=== PATIENT | female | born 1960 | race Caucasian/White ===

== ENCOUNTER 2018-01-13 19:06 | Emergency (ER) | payer MEDICARE, MEDICAID ==
[2018-01-13] MEDS ORDERED: Acetaminophen 500 MG TAB ONE (20:09)
--- NOTE | 2018-01-13 22:02 | RAD ---
TWO VIEWS CHEST: HISTORY: Fever. Cough. COMPARISON: None. FINDINGS: Normal cardiac silhouette. The pulmonary vessels and hilum are normal. the costophrenic angles are clear. No consolidation or mass. No pneumothorax or osseous abnormalities. IMPRESSION: No acute cardiopulmonary process. POS: [facility]
== END 2018-01-13 20:46 | disposition home or self-care (01) ==
LOC: SCSER 19:06
DX: J02.9 Acute pharyngitis, unspecified (principal); E11.9 Type 2 diabetes mellitus without complications; F32.9 Major depressive disorder, single episode, unspecified; Z79.899 Other long term (current) drug therapy
CPT/HCPCS: 71046; 87081; 87430; 99406

== ENCOUNTER 2018-02-09 17:35 | Emergency (ER) | payer MEDICARE, MEDICAID ==
[2018-02-09] MEDS ORDERED: Bacitracin Zinc 1 Packet ONE (18:21)
[2018-02-09] MEDS ORDERED: Adacel (T-DAP) 0.5 ML VIAL ONE (18:48)
== END 2018-02-09 18:20 | disposition home or self-care (01) ==
LOC: SCSER 17:35
DX: S61.212A Laceration without foreign body of right middle finger without damage to nail, initial encounter (principal); I25.2 Old myocardial infarction; E11.9 Type 2 diabetes mellitus without complications; F32.9 Major depressive disorder, single episode, unspecified; W26.8XXA Contact with other sharp object(s), not elsewhere classified, initial encounter
CPT/HCPCS: 90471; 90715

== ENCOUNTER 2018-04-02 20:05 | Emergency (ER) | payer MEDICARE, MEDICAID ==
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
== END 2018-04-02 21:57 | disposition home or self-care (01) ==
LOC: ERS 20:05
DX: L03.116 Cellulitis of left lower limb (principal); I25.2 Old myocardial infarction; E11.9 Type 2 diabetes mellitus without complications; F32.9 Major depressive disorder, single episode, unspecified; Z79.84 Long term (current) use of oral hypoglycemic drugs

== ENCOUNTER 2018-05-28 05:48 | Observation (INO) | payer MEDICARE, MEDICAID ==
[2018-05-28 06:22] LABS: Hemoglobin 13.6 g/dL (12.0-16.0); Mean Corpuscular Hemoglobin 27.9 pg (27.0-31.0); Mean Corpuscular Volume 87.2 fL (78.0-98.0); Mean Platelet Volume 7.2 fL (7.4-10.4); Platelet Count 238 thou/uL (130-400); RBC Distribution Width 12.6 % (11.5-14.5); Red Blood Cell (RBC) Count 4.89 mill/uL (4.20-5.40)
[2018-05-28 06:27] LABS: INR-International Normal Ratio 0.9; PTT 29.7 SEC (22.9-36.1); Prothrombin Time 12.3 SEC (12.0-14.7)
[2018-05-28 06:29] LABS: ALT (SGPT) 12 U/L (8-55); AST (SGOT) 15 U/L (5-34); Albumin 3.9 g/dL (3.5-5.0); Alkaline Phosphatase 99 U/L (40-150); Anion Gap 12 mmol/L (10-20); BUN (Urea Nitrogen) 9 mg/dL (9.8-20.1); Bilirubin, Total 0.5 mg/dL (0.2-1.2); CK (CPK) 124 U/L (29-168); Calc. Creatinine Clearance 0 mL/min (70-130); Calcium 9.3 mg/dL (7.8-10.44); Carbon Dioxide 24 mmol/L (22-29); Chloride 104 mmol/L (98-107); Estimated GFR-MDRD 74; Globulin 2.7 g/dL (2.4-3.5); Glucose 122 mg/dL (70-105); Potassium 3.9 mmol/L (3.5-5.1); Protein, Total 6.6 g/dL (6.0-8.3); Sodium 136 mmol/L (136-145)
[2018-05-28 06:32] LABS: CKMB 1.9 ng/mL (0-6.6); Troponin I Less than 0.010 ng/mL (< 0.028)
[2018-05-28 06:38] LABS: Eosinophils 1 % (0-10); Lymphocytes 32 % (21-51); MDiff Complete? YES; Monocytes 5 % (0-10); Neutrophil 60 % (42-75); PLT Morphology Comment Appears Adequate; RBC Morphology Normal; Reactive Lymphocytes 2 % (0-10); White Blood Cell (WBC) Count 10.3 thou/uL (4.8-10.8)
[2018-05-28] MEDS ORDERED: Ondansetron PF 4 MG/2 ML Vial ONE (07:23)
[2018-05-28] MEDS ORDERED: Aspirin 300 MG Suppository ONE (07:23)
--- NOTE | 2018-05-28 08:03 | CT ---
CTA OF THE HEAD WITH IV CONTRAST AND 3D REFORMATTED IMAGING CTA OF THE NECK WITH IV CONTRAST AND 3D REFORMATTED IMAGING: Date: 05/28/18 INDICATION: History of left-sided facial droop, left-sided neglect and arm drift. FINDINGS: CTA HEAD: No hemodynamically significant stenosis, occlusion, or aneurysmal formation is demonstrated. No area of abnormal enhancement is demonstrated. There is prominent opacification of the right frontal sinus, right ethmoid air cells, and right maxillary sinus. CTA NECK: No hemodynamically significant stenosis, occlusion, or aneurysmal formation is demonstrated. Soft tis sues of the head and neck appear within normal limits. No enlarged lymph nodes are evident. Lung apic es are clear. No definite acute osseous abnormality is evident. IMPRESSION: 1. No hemodynamically significant stenosis, occlusion, or aneurysmal formation demonstrated. 2. Prominent right paranasal sinus disease. POS: [facility]
--- NOTE | 2018-05-28 08:06 | CT ---
CT OF THE BRAIN WITHOUT CONTRAST: Date: 05/28/18 INDICATION: Left-sided weakness, Level I stroke protocol. COMPARISON: None. FINDINGS: There are bur holes involving the right frontal and right parietal skull. No acute infarct, hemorrhag e, or hydrocephalus is present. Septum pellucidum and third ventricle are midline. There is prominent mucosal thickening within the right ethmoid air cells, as well as the right frontal sinus. Small air fluid level is seen within the right maxillary sinus with near complete opacification of the right m axillary sinus. Mastoid air cells are clear. IMPRESSION: 1. No acute intracranial abnormality demonstrated. 2. Prominent right-sided paranasal sinus disease. Recommend correlation for sinusitis. Findings called to Dr. Zaldivar at 0604 hours on 05/28/18. CODE CR. POS: [facility]
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
[2018-05-28] MEDS ORDERED: Dextrose 50% Abboject 50 ML SYRINGE SLOW IVP PRN (09:45)
[2018-05-28] MEDS ORDERED: HumaLOG 300 UNITS/3 ML VIAL SC PRN (09:45)
[2018-05-28] MEDS ORDERED: Dextrose 5% in Water 1,000 ML IV PRN (09:45)
--- NOTE | 2018-05-28 12:24 | HP ---
DATE OF ADMISSION: 05/28/2018 CHIEF COMPLAINT: Left-sided weakness, facial droop. HISTORY OF PRESENT ILLNESS: Ms. Ivan is a 58-year-old white female who was admitted with left-si ded weakness and facial droopiness. She was felt to be having TIA versus stroke. She was admitted f or stroke workup. Thus far, she has had negative CTA of the head and neck. We will schedule MRI and have Neurology see her as well. PHYSICAL EXAMINATION: VITAL SIGNS: Her blood pressure is currently 140/70, pulse rate is 88 and regular, respirations 14. GENERAL: She seems confused and is having some word-finding difficulty. She is, however, awake and alert. NECK: Supple. CARDIAC: Heart rhythm regular. No gallop or murmur noted. LUNGS: Clear, though diminished without rales or wheezes. ABDOMEN: Flat and soft without guarding, rebound or rigidity. NEUROLOGICAL: She does have a slight left-sided weakness and facial droopiness. LABORATORY DATA: CBC, white count is 10,300, hemoglobin 13.6, hematocrit 42.6 with an MCV of 87.2. Chemistries, her sodium is 136, potassium 3.9, chloride is 104, bicarbonate is 24, BUN is 9, creatini ne is 0.79 and glucose is 122. She has already had a CTA of the head and neck with no finding of significant occlusive disease. We are going ahead and schedule her for an echocardiogram. If this also proves negative, we may conside r event recorder to assess her for some type of occult arrhythmia. In the meantime, we will start as pirin and statins and monitor blood pressure. I have examined the patient. I have also discussed the case with Dr. July Perez and agree with her as sessment and plan.
[2018-05-28] MEDS: Acetaminophen 325 MG TAB PO PRN ×2 (15:27→23:53)
[2018-05-28] MEDS ORDERED: Lorazepam 0.5 MG TAB PO SCH (16:00)
[2018-05-28] MEDS ORDERED: ISOVUE-370 76%-LOCM 1 ML ONE (16:05)
[2018-05-28] MEDS: Gabapentin 400 MG CAP PO SCH ×2 (16:33→21:54)
[2018-05-28] MEDS ORDERED: Ketorolac Tromethamine 30 MG/ML VIAL IVP SCH (17:00)
[2018-05-28] MEDS ORDERED: Non-Formulary Item 1 EACH (Metformin Hcl [Metformin Hcl] 1,000 MG) PO SCH (21:00)
[2018-05-28] MEDS: guaiFENesin ER 600 MG TAB PO SCH (21:54)
[2018-05-28] MEDS: Carvedilol 3.125 MG TAB PO SCH (21:54)
[2018-05-28] MEDS: metFORMIN 500 MG TAB PO SCH (21:54)
[2018-05-29 05:07] LABS: #Eosinphils 0.2 thou/uL (0.0-0.7); #Lymphocytes 2.7 thou/uL (1.20-3.40); #Monocytes 0.5 thou/uL (0.11-0.59); #Neutrophils 4.6 thou/uL (1.40-6.50); %Basophils 0.4 % (0.0-1.0); %Eosinophils 2.6 % (0.0-10.0); %Lymphocytes 33.7 % (21.0-51.0); %Monocytes 6.5 % (0.0-10.0); %Neutrophils 56.9 % (42.0-75.0); Hemoglobin 13.3 g/dL (12.0-16.0); Mean Corpuscular HGB CONC 32.3 g/dL (32.0-36.0); Mean Corpuscular Hemoglobin 28.2 pg (27.0-31.0); Mean Corpuscular Volume 87.4 fL (78.0-98.0); Mean Platelet Volume 7.3 fL (7.4-10.4); Platelet Count 231 thou/uL (130-400); RBC Distribution Width 12.5 % (11.5-14.5); Red Blood Cell (RBC) Count 4.73 mill/uL (4.20-5.40)
[2018-05-29 05:27] LABS: Anion Gap 11 mmol/L (10-20); BUN (Urea Nitrogen) 14 mg/dL (9.8-20.1); Calc. Creatinine Clearance 163 mL/min (70-130); Calcium 9.2 mg/dL (7.8-10.44); Carbon Dioxide 25 mmol/L (22-29); Cardiac Risk 2.9 (Less than 4.5); Chloride 106 mmol/L (98-107); Cholesterol 116 mg/dl (< 200 Desired); Estimated GFR-MDRD Greater than 90; Glucose 101 mg/dL (70-105); HDL Cholesterol 40 mg/dL (>60 Neg Risk); LDL Cholesterol, Calculated 45 mg/dL; Potassium 4.4 mmol/L (3.5-5.1); Sodium 138 mmol/L (136-145); Triglycerides 154 mg/dL (Less than 150)
[2018-05-29] MEDS: Ketorolac Tromethamine 30 MG/ML VIAL IVP PRN ×3 (06:14→21:53)
[2018-05-29] MEDS: Levothyroxine Sodium 100 MCG TAB PO SCH (06:14)
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
[2018-05-29] MEDS ORDERED: Lorazepam 2 MG/ML VIAL SLOW IVP SCH (07:45)
[2018-05-29] MEDS: Clopidogrel Bisulfate 75 MG TAB PO SCH (08:41)
[2018-05-29] MEDS: Atorvastatin Calcium 40 MG TAB PO SCH (08:41)
[2018-05-29] MEDS: Carvedilol 3.125 MG TAB PO SCH ×2 (08:41→23:12)
[2018-05-29] MEDS: Gabapentin 400 MG CAP PO SCH ×4 (08:41→23:11)
[2018-05-29] MEDS: guaiFENesin ER 600 MG TAB PO SCH ×2 (08:42→23:12)
[2018-05-29] MEDS: Magnesium Oxide 250 MG TAB PO SCH (08:42)
[2018-05-29] MEDS: metFORMIN 500 MG TAB PO SCH ×2 (08:42→22:59)
[2018-05-29] MEDS: Acetaminophen 325 MG TAB PO PRN (08:46)
--- NOTE | 2018-05-29 10:32 | PRG ---
DATE OF SERVICE: 05/29/2018 SUBJECTIVE: Ms. Ivan is resting quietly in bed. She was unable to do an MRI yesterday because o f anxiety. We will pretreat her with Ativan and reattempt an MRI today. We are also awaiting consul tation from Neurology Service. Otherwise, Ms. Ivan is clinically stable and is ready on aspirin and statin therapy.
[2018-05-29] MEDS: Empagliflozin [Jardiance] 10 MG TAB PO SCH (11:33)
[2018-05-29] MEDS ORDERED: Lorazepam 2 MG/ML VIAL SLOW IVP PRN (12:22)
--- NOTE | 2018-05-29 15:38 | MRI ---
BRAIN MRI NONCONTRAST: INDICATION: Stroke, left-sided weakness. FINDINGS: There is extensive patient motion throughout the imaging exam which limits evaluation. There is a fo benny area of increased diffusion weighted signal at the anterior and lateral right frontal convexity w hich is limited by patient motion and difficult to corroborate on the ADC map, although a small area of acute cortical infarction cannot be excluded. Alternatively, this could relate to a focal area of artifact. There is no midline shift or ventriculomegaly. No hemorrhagic susceptibility is visualiz ed within the brain parenchyma. IMPRESSION: Focal area of increased diffusion weighted signal at the anterolateral right frontal lobe for which a small cortical infarction of acuity is not excluded. The exam is markedly degraded by patient motio n. POS: [facility]
[2018-05-29 18:46] VITALS: BMI 43.0
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
[2018-05-30] MEDS: Ketorolac Tromethamine 30 MG/ML VIAL IVP PRN ×2 (03:38→11:18)
--- NOTE | 2018-05-30 06:11 | PDOC.FM ---
- Subjective Subjective: Pt has severe headache again this morning. Ketorolac has diminished the pain yesterday. - Objective Vital Signs & Weight: Vital Signs (12 hours) Temp Pulse Resp BP Pulse Ox 05/30/18 04:00 98.2 F 61 24 H 142/78 H 96 05/30/18 00:00 98.4 F 64 22 H 140/70 97 05/29/18 20:00 98.9 F 75 16 107/62 96 Weight Admit Weight 108.862 kg Weight 106.736 kg I&O: 05/28/18 05/29/18 05/30/18 06:59 06:59 06:59 Intake Total 250 903 Balance 250 903 Result Diagrams: 05/30/18 07:23 05/30/18 07:23 Phys Exam - Physical Examination Appears in pain HEENT: PERRLA, moist MMs, oral pharynx no lesions Neck: no nodes, supple Respiratory: no wheezing, clear to auscultation bilateral Cardiovascular: RRR, no significant murmur Gastrointestinal: soft, non-tender, positive bowel sounds Musculoskeletal: no edema, pulses present LUE and LLE 3/5, numbness on L side face, L arm, L leg slightly improved. Psychiatric: normal affect Dx/Plan (1) Sinusitis Code(s): J32.9 - CHRONIC SINUSITIS, UNSPECIFIED Status: Acute (2) DM2 (diabetes mellitus, type 2) Status: Chronic (3) HLD (hyperlipidemia) Code(s): E78.5 - HYPERLIPIDEMIA, UNSPECIFIED Status: Chronic (4) Hypothyroid Code(s): E03.9 - HYPOTHYROIDISM, UNSPECIFIED Status: Chronic (5) Neuropathy Code(s): G62.9 - POLYNEUROPATHY, UNSPECIFIED Status: Chronic - Plan Plan: 58 yo F with PMH DM2 and prior intracranial hemorrhage presents for "worst headache of life" most likely stroke # Left sided Weakness and numbness, probable psychogenic disorder, improving -Rt sided "worst headache of life," Pt has word-finding difficulty, Left sided facial and body weakness and numbness -Pt has been under significant stress lately with caring for her granddaughters , under significant financial stress -Received ASA 300 in ED with zofran - On dual antiplatelet therapy, on statin therapy -EKG wnl, CT head wnl, CTA head/neck showed no stenosis, occlusion or aneurysm -Consulted stroke team -Neuro consulted, Dr. Flores. Appreciate recommendations -Reports her symptoms are inconsistent with stroke, most likely this is a psychogenic paralysis due to stressors -Consider DHE and reglan for headache -LP today -MRI inconclusive because of motion artifact -Pt passed bedside swallow for pureed foods, Diet: CC puree -Pt did not like diet, switched to regular puree -Neuro checks q4 hrs -ECHO showed EF 60-65%, Grade 1/3 diastolic dysfunction, mild tricuspid and mitral valve regurge, mildly dilated LA, mildly enlarged right atrium -PT/OT on board #Rt sided Sinusitis -mucinex -monitor for fever #DM2 -home medications -Mod SSI -Hypoglycemia protocol #HLD -atorvastatin 40 -S/p cath x2 stents in December -continue home Coreg (3.125 BID) -continue home plavix #hypothyroidism -continue synthroid #Neuropathy -Continue gabapentin DVT PPX: SCDs Code status: Full code
[2018-05-30] MEDS: Acetaminophen 325 MG TAB PO PRN (06:25)
[2018-05-30] MEDS: Levothyroxine Sodium 100 MCG TAB PO SCH (06:25)
[2018-05-30 07:33] LABS: #Basophils 0.1 thou/uL (0.0-0.2); #Eosinphils 0.2 thou/uL (0.0-0.7); #Lymphocytes 2.6 thou/uL (1.20-3.40); #Monocytes 0.6 thou/uL (0.11-0.59); #Neutrophils 5.8 thou/uL (1.40-6.50); %Basophils 0.7 % (0.0-1.0); %Eosinophils 2.6 % (0.0-10.0); %Lymphocytes 28.4 % (21.0-51.0); %Monocytes 6.4 % (0.0-10.0); %Neutrophils 61.9 % (42.0-75.0); Hemoglobin 12.9 g/dL (12.0-16.0); Mean Corpuscular HGB CONC 33.4 g/dL (32.0-36.0); Mean Corpuscular Volume 86.8 fL (78.0-98.0); Platelet Count 251 thou/uL (130-400); RBC Distribution Width 12.6 % (11.5-14.5); Red Blood Cell (RBC) Count 4.45 mill/uL (4.20-5.40); White Blood Cell (WBC) Count 9.3 thou/uL (4.8-10.8)
[2018-05-30 07:58] LABS: Anion Gap 11 mmol/L (10-20); BUN (Urea Nitrogen) 14 mg/dL (9.8-20.1); Calc. Creatinine Clearance 134 mL/min (70-130); Calcium 9.3 mg/dL (7.8-10.44); Carbon Dioxide 28 mmol/L (22-29); Chloride 102 mmol/L (98-107); Estimated GFR-MDRD 79; Glucose 113 mg/dL (70-105); Potassium 4.5 mmol/L (3.5-5.1); Sodium 136 mmol/L (136-145)
[2018-05-30] MEDS ORDERED: Metoclopramide HCl 10 MG TAB PO SCH (08:15)
[2018-05-30] MEDS ORDERED: diphenhydrAMINE 25 MG CAP PO SCH (08:15)
[2018-05-30] MEDS: Empagliflozin [Jardiance] 10 MG TAB PO SCH (09:12)
[2018-05-30] MEDS: metFORMIN 500 MG TAB PO SCH (09:13)
[2018-05-30] MEDS: Magnesium Oxide 250 MG TAB PO SCH (09:14)
[2018-05-30] MEDS: Atorvastatin Calcium 40 MG TAB PO SCH (09:14)
[2018-05-30] MEDS: Clopidogrel Bisulfate 75 MG TAB PO SCH (09:14)
[2018-05-30] MEDS: guaiFENesin ER 600 MG TAB PO SCH (09:15)
[2018-05-30] MEDS: Carvedilol 3.125 MG TAB PO SCH (09:15)
[2018-05-30] MEDS: Gabapentin 400 MG CAP PO SCH ×2 (09:15→13:56)
[2018-05-30] MEDS ORDERED: PARoxetine 20 MG TAB PO SCH (09:30)
[2018-05-30] MEDS ORDERED: Dihydroergotamine Mesylate 1 MG/ML AMP SLOW IVP SCH (11:30)
--- NOTE | 2018-05-30 11:52 | PRG ---
DATE OF SERVICE: 05/30/2018 Ms. Ivan is awake and alert this morning. She was upset about her headache regimen including Oscar adryl, but is otherwise in no distress. We appreciate the input from Neurology. It would seem that she has not had stroke, but the MRI was inconclusive because of motion artifact. I think it would be reasonable to continue at least the aspirin and statin in her case until the clinical picture is dudley arer. Neurology has also suggested that if her headache is ongoing with not much improvement to give her a trial of DHE and Reglan.
[2018-05-30] MEDS ORDERED: HYDROcodone/Acetaminophen 10/325 mg Tablet PO PRN (14:35)
[2018-05-30] MEDS ORDERED: Ondansetron ODT 4 MG TAB PO PRN (15:18)
[2018-05-30 15:49] VITALS: BP 186/82; TEMP 97.9
--- NOTE | 2018-05-30 16:06 | PDOC.EVN ---
Event Note - Event Note Event Note: Spoke with Patient and pt's daughter and grandson. Patient does not want to go to a facility, prefers home health. Pt's needs require PT/OT, rolling walker, fpc, home health. Pt's daughter states that she and her cousin will be available and will be assisting the patient at home. All family understands and is in agreement with the plan. Pt states she will follow up with Dr. Rogers outpatient.
--- NOTE | 2018-05-31 05:04 | DIS-2 ---
DATE OF ADMISSION: 05/28/2018 DATE OF DISCHARGE: 05/30/2018 RESIDENT: July Perez MD ADMITTING ATTENDING: Dr. Packer. DISCHARGE ATTENDING: Dr. Packer. CONSULTATION: Dr. Flores, Neurology on 05/28/2018. PROCEDURES: 1. Brain CT on 05/28/2018: Impression: No acute intracranial abnormality. Prominent right-sided paranasal sinus disease. CT angiography on 05/28/2018, no hemodynamically significant stenosis, occlusion, or aneurysm formation demonstrated. 2. Head, neck CTA with brain perfusion on 05/28/2018: Impression: No hemodynamically significant stenosis, occlusion, or aneurysm formation. 3. Echocardiogram on 05/28/2018. Ejection fraction 60-65%. Grade 1/3 diastolic dysfunction. Mild tricuspid regurgitation. Mild mitral regurgitation. Mildly dilated left atrium. Mildly enlarged right atrium size. 4. Brain MRI on 05/29/2018: Impression: Focal area of increased diffusion weighted signal at the anterolateral right frontal lobe, which is small cortical infarction of ACUITY is not excluded. The exam is markedly degraded by patient motion. PRIMARY DIAGNOSIS: Psychogenic paralysis. SECONDARY DIAGNOSES: 1. Right-sided sinusitis. 2. Diabetes mellitus type 2. 3. Hyperlipidemia. 4. Hypothyroidism. 5. Neuropathy. DISCHARGE MEDICATIONS: 1. Aspirin 81 mg p.o. daily. 2. Atorvastatin 40 mg p.o. daily. 3. Carvedilol 3.125 mg p.o. b.i.d. 4. Cholecalciferol 2000 units p.o. daily. 5. Clopidogrel 75 mg p.o. daily. 6. Empagliflozin 10 mg p.o. daily. 7. Gabapentin 800 mg p.o. q.i.d. 8. Levothyroxine 200 mcg p.o. daily. 9. Magnesium oxide 500 mg p.o. daily. 10. Metformin 1000 mg p.o. b.i.d. 11. Paroxetine 20 mg p.o. daily. DISCONTINUED MEDICATIONS: None. HISTORY OF PRESENT ILLNESS AND HOSPITAL COURSE: This is a 58-year-old female with past medical history of diabetes mellitus and prior intracranial hemorrhage in 1999, presenting for right-sided frontal headache, worst of her life, and word finding difficulty. The pain started around midnight and woke her from sleep around 2:00 a.m. The pain was 10/10, constant, with no radiation "feels like a drill." The patient reports never having headaches. The pain is now improved in the ED to 7/10. Associated symptom of nausea. Per daughter, the patient has had symptoms of headache and word finding difficulties since about 9:00 p.m. to midnight last night. In the ED, the patient received aspirin 300 rectal and 4 mg of Zofran. The patient had been under significant amount of stress that she is caring for her granddaughters and was under significant financial distress. Patient was already on dual antiplatelet therapy as well as statin therapy. Her EKG was within normal limits. CT of head was normal. CT of head and neck showed no stenosis, occlusion, or aneurysm. Neuro, Dr. Flores was consulted. She received an MRI , which was inconclusive because of motion artifact. Dr. Flores diagnosed the patient with most likely psychogenic paralysis. She was given ketorolac, which somewhat helped her headaches. She was also tried on Reglan and Benadryl, which did not help her headaches. She was also given ergotamine, which caused the patient to vomit and was discontinued. An echo was done which showed ejection fraction of 60-65% and a mildly dilated left atrium and mildly enlarged right atrium. The patient was started on Mucinex for her right-sided sinusitis. The patient was continued on home medication for diabetes, hyperlipidemia, hypothyroidism, and neuropathy. The patient reported that she only sleeps about 3-4 hours at night because of her anxiety and depressive symptoms. She says she cannot fall asleep due to racing thoughts. The patient stated she was well controlled on Paxil about 6 months ago, but stopped taking Paxil because she missed two appointments with her doctor. We will start her on Paxil 20 mg p.o. daily. Patient will follow up with her PCP after discharge. DISPOSITION: Stable. DISCHARGE INSTRUCTIONS: 1. Location: Home. 2. Diet: Diabetic diet, normal heart healthy diet. 3. Activity: As tolerated. THERAPY INSTRUCTIONS: 1. Home health, occupational therapy, physical therapy. 2. Equipment supplies, a rolling walker. 3. Follow up with home health. 4. Follow up with Dr. Perez within 1 week with [facility]. 5. Follow up with Tommy Hsu, PCP with regular scheduled appointment on . [facility]
[2018-05-31] MEDS ORDERED: PARoxetine 20 MG TAB PO SCH (09:00)
== END 2018-05-30 18:24 | disposition home health service (06) ==
LOC: ERS 05:48 → 2SE 08:55
PROVIDERS: ADMIT Student in an Organized Health Care Education/Training Program; ATTEND Student in an Organized Health Care Education/Training Program
DX: F44.4 Conversion disorder with motor symptom or deficit (principal); F41.9 Anxiety disorder, unspecified; F31.9 Bipolar disorder, unspecified; F17.210 Nicotine dependence, cigarettes, uncomplicated; J32.9 Chronic sinusitis, unspecified; E78.5 Hyperlipidemia, unspecified; E11.42 Type 2 diabetes mellitus with diabetic polyneuropathy; I25.10 Atherosclerotic heart disease of native coronary artery without angina pectoris; I10 Essential (primary) hypertension; E89.0 Postprocedural hypothyroidism; Z86.73 Personal history of transient ischemic attack (TIA), and cerebral infarction without residual deficits; Z79.02 Long term (current) use of antithrombotics/antiplatelets; Z79.82 Long term (current) use of aspirin; Z79.84 Long term (current) use of oral hypoglycemic drugs; Z79.899 Other long term (current) drug therapy; Z88.1 Allergy status to other antibiotic agents; Z88.8 Allergy status to other drugs, medicaments and biological substances; Z95.5 Presence of coronary angioplasty implant and graft; Z98.890 Other specified postprocedural states; Z63.79 Other stressful life events affecting family and household
CPT/HCPCS: 0042T; 70450; 70496; 70498; 70551; 80048 ×2; 80053; 80061; 82550; 82553; 82962 ×3; 84484; 85025 ×3; 85610; 85730; 90732; 93005; 93306; 96374; 96375 ×3; 96376 ×2; 97110; 97139 ×2; 97530 ×3; 99285; G0009; G0378 ×3; G8978; G8979; G8987; G8988; 36415; 36416; 90471; G8996-GN-CK; G8997-GN-CI; J1110; J1885; J2060; J2405; J2997; Q0162

== ENCOUNTER 2018-08-22 19:22 | Emergency (ER) | payer MEDICARE, MEDICAID ==
[2018-08-22 20:13] LABS: #Basophils 0.1 thou/uL (0.0-0.2); #Eosinphils 0.1 thou/uL (0.0-0.7); #Lymphocytes 3.2 thou/uL (1.20-3.40); #Monocytes 0.6 thou/uL (0.11-0.59); #Neutrophils 4.2 thou/uL (1.40-6.50); %Basophils 1.4 % (0.0-1.0); %Eosinophils 1.5 % (0.0-10.0); %Lymphocytes 38.3 % (21.0-51.0); %Monocytes 7.7 % (0.0-10.0); Hemoglobin 14.9 g/dL (12.0-16.0); Mean Corpuscular HGB CONC 32.2 g/dL (32.0-36.0); Mean Corpuscular Hemoglobin 28.8 pg (27.0-31.0); Mean Corpuscular Volume 89.5 fL (78.0-98.0); Mean Platelet Volume 7.4 fL (7.4-10.4); Platelet Count 223 thou/uL (130-400); Red Blood Cell (RBC) Count 5.17 mill/uL (4.20-5.40); White Blood Cell (WBC) Count 8.3 thou/uL (4.8-10.8)
[2018-08-22 20:26] LABS: ALT (SGPT) 21 U/L (8-55); AST (SGOT) 20 U/L (5-34); Albumin 4.4 g/dL (3.5-5.0); Alkaline Phosphatase 109 U/L (40-150); Anion Gap 14 mmol/L (10-20); BUN (Urea Nitrogen) 14 mg/dL (9.8-20.1); Bilirubin, Total 0.2 mg/dL (0.2-1.2); Calc. Creatinine Clearance 0 mL/min (70-130); Calcium 9.3 mg/dL (7.8-10.44); Carbon Dioxide 31 mmol/L (22-29); Chloride 101 mmol/L (98-107); Estimated GFR-MDRD 58; Globulin 2.9 g/dL (2.4-3.5); Glucose 174 mg/dL (70-105); Potassium 3.5 mmol/L (3.5-5.1); Protein, Total 7.3 g/dL (6.0-8.3); Sodium 142 mmol/L (136-145)
--- NOTE | 2018-08-22 20:30 | RAD ---
RIGHT FOOT THREE VIEWS: 08/22/18 HISTORY: Right foot pain, cut her toe while cutting her toenails. FINDINGS/IMPRESSION: Mild degenerative changes. No fracture, dislocation, or other significant acute osseous abnormality. POS: JODEE
[2018-08-22] MEDS ORDERED: Piperacillin/Tazobactam 3.375 GM VIAL ONE (21:34)
[2018-08-22] MEDS ORDERED: Sodium Chloride 0.9% 100 ML ONE (21:35)
== END 2018-08-22 22:31 | disposition home or self-care (01) ==
LOC: SCSER 19:22
DX: L03.031 Cellulitis of right toe (principal); I25.2 Old myocardial infarction; E11.9 Type 2 diabetes mellitus without complications; F32.9 Major depressive disorder, single episode, unspecified; F17.210 Nicotine dependence, cigarettes, uncomplicated; Z86.73 Personal history of transient ischemic attack (TIA), and cerebral infarction without residual deficits
CPT/HCPCS: 36415; 80053; 85025; 96365; J2543; J7050

== ENCOUNTER 2018-12-07 16:53 | Observation (INO) | payer MEDICAID, MEDICARE ==
[~2018-12-07 16:53] MED LIST: ISOVUE-370 76%-LOCM 1 ML ONE
[2018-12-07 17:32] LABS: #Basophils 0.1 thou/uL (0.0-0.2); #Eosinphils 0.1 thou/uL (0.0-0.7); #Lymphocytes 1.7 thou/uL (1.20-3.40); #Monocytes 0.3 thou/uL (0.11-0.59); %Basophils 0.9 % (0.0-1.0); %Lymphocytes 23.3 % (21.0-51.0); %Monocytes 4.2 % (0.0-10.0); %Neutrophils 70.6 % (42.0-75.0); Hemoglobin 13.6 g/dL (12.0-16.0); Mean Corpuscular HGB CONC 33.2 g/dL (32.0-36.0); Mean Corpuscular Hemoglobin 30.2 pg (27.0-31.0); Mean Corpuscular Volume 91.1 fL (78.0-98.0); Mean Platelet Volume 7.3 fL (7.4-10.4); Platelet Count 187 thou/uL (130-400); RBC Distribution Width 12.2 % (11.5-14.5); Red Blood Cell (RBC) Count 4.51 mill/uL (4.20-5.40); White Blood Cell (WBC) Count 7.1 thou/uL (4.8-10.8)
[2018-12-07] MEDS ORDERED: Metoclopramide HCl 10 MG/2 ML VIAL ONE (17:52)
[2018-12-07] MEDS ORDERED: diphenhydrAMINE 50 MG/ML VIAL ONE (17:52)
[2018-12-07 18:00] LABS: ALT (SGPT) 15 U/L (8-55); AST (SGOT) 14 U/L (5-34); Albumin 3.9 g/dL (3.5-5.0); Alkaline Phosphatase 90 U/L (40-150); Anion Gap 13 mmol/L (10-20); BUN (Urea Nitrogen) 17 mg/dL (9.8-20.1); Bilirubin, Total 0.3 mg/dL (0.2-1.2); Calc. Creatinine Clearance 0 mL/min (70-130); Calcium 9.4 mg/dL (7.8-10.44); Carbon Dioxide 28 mmol/L (22-29); Chloride 99 mmol/L (98-107); Estimated GFR-MDRD 65; Globulin 2.3 g/dL (2.4-3.5); Glucose 180 mg/dL (70-105); Lipase 8 U/L (8-78); Potassium 3.7 mmol/L (3.5-5.1); Protein, Total 6.2 g/dL (6.0-8.3); Sodium 136 mmol/L (136-145)
[2018-12-07] MEDS ORDERED: predniSONE 20 MG TAB ONE (18:19)
--- NOTE | 2018-12-07 18:33 | RAD ---
PORTABLE CHEST ONE VIEW: Date: 12-07-18 Time: 5:45 p.m. Comparison: Chest pain FINDINGS: The heart size is normal. The aorta is tortuous. The lungs are well expanded without focal areas of c onsolidation, pneumothoraces or pleural effusions. IMPRESSION: No acute process. POS: DAO
[2018-12-07] MEDS ORDERED: Ondansetron PF 4 MG/2 ML Vial IVP PRN (19:45)
[2018-12-07] MEDS ORDERED: Senokot S 8.6-50 MG TAB PO PRN (19:45)
[2018-12-07] MEDS ORDERED: Sodium Chloride 0.9% 1,000 ML IV SCH (19:45)
[2018-12-07] MEDS ORDERED: Dextrose 50% Abboject 50 ML SYRINGE SLOW IVP PRN (19:54)
[2018-12-07] MEDS ORDERED: HumaLOG 300 UNITS/3 ML VIAL SC PRN (19:54)
[2018-12-07] MEDS ORDERED: Dextrose 5% in Water 1,000 ML IV PRN (19:54)
[2018-12-07 20:55] LABS: Troponin I Less than 0.010 ng/mL (< 0.028)
[2018-12-07] MEDS ORDERED: Melatonin 3 MG TAB PO PRN (21:35)
[2018-12-07] MEDS ORDERED: metFORMIN 500 MG TAB PO SCH (21:45)
[2018-12-07] MEDS ORDERED: Apixaban 5 MG TAB PO SCH (22:15)
[2018-12-07] MEDS ORDERED: Gabapentin 400 MG CAP PO SCH (22:15)
[2018-12-07] MEDS ORDERED: Carvedilol 3.125 MG TAB PO SCH (22:15)
[2018-12-07] MEDS: Famotidine 20 MG TAB PO SCH (22:21)
--- NOTE | 2018-12-07 22:47 | CT ---
CT ABDOMEN AND PELVIS WITH IV CONTRAST: History: Umbilical hernia with vomiting. FINDINGS: Lung bases are clear. No calcified gallstones are seen. The liver, spleen, pancreas, adrenal glands, and left kidney are normal. There is scarring in the right kidney. No free air, free fluid or lymphad enopathy is seen in the abdomen or pelvis. There are vascular calcifications without evidence of aneu rysmal dilatation of the abdominal aorta. There are post op changes and metallic hardware in the lower lumbar spine. The patient is post hyster ectomy. There is fecal material in the colon. A small hiatal hernia is present. Small bowel loops are not abnormally dilated. There is no evidence of appendicitis. There is a fat containing umbilical he rnia. IMPRESSION: No evidence of acute process. POS: DAO
[2018-12-07 23:07] VITALS: BMI 37.9
[2018-12-08 00:36] LABS: Troponin I Less than 0.010 ng/mL (< 0.028)
--- NOTE | 2018-12-08 01:16 | HP ---
CHIEF COMPLAINT: Chest pain. HISTORY OF PRESENT ILLNESS: This is a 58-year-old female who presented to the emergency room today for evaluation of chest pain over the last 2 days, reports becoming lightheaded along with some double vision intermittently and fluttering in her chest. The patient today states that she had some shortness of breath and nausea and vomited x1. Reports that she has had cough for a couple of days and feels like as heavy pressure is sitting substernally on her chest. The patient states that she took 325 mg of aspirin prior to arrival and then an another one on the way here. The patient states she has been under increased stress lately and she helped a family member move yesterday. Last bowel movement was yesterday. Reported passing gas normally. She has a history of TIA in May, has had a heart catheterization with 2 stents and had a LINQ placed in December of last year. She also has a history of a hiatal hernia. Other pertinent past medical history includes lupus and fibromyalgia. She has had 2 MIs, diabetes, had thyroid cancer. Does report a history of sleep apnea, but states that she got tired of the CPAP and stopped using it. She also has a history of cigarette smoking and smokes about half a pack a day and has for over 10 years. The patient's initial troponin x2 are undetectable. EKG shows normal sinus rhythm, beats per minute 75. Conduction is normal, ST segments are normal, nonspecific T-wave changes. The patient also reports that she has had this hernia in her abdomen for the last several years, reports that had been repaired once, but reports that it has come back, and it is bigger than it was originally. Reports that she has some pain around it. Denies any changes to stool, is passing gas. ER ordered abdomen and pelvis CT, which showed no evidence of any acute process. Does report that she has a fat containing hernia. The patient is subsequently admitted to the observation unit for further management. REVIEW OF SYSTEMS: Denies chills or fever. Does report some intermittent vision changes. Reports that she had a presyncopal episode. Reports chest pain. Reports palpitations. Reports cough and shortness of breath. Reports appetite changes, food intolerance, nausea, and vomiting x1. Denies constipation or diarrhea. Reports dizziness. Denies headache, mental status changes, sensory changes, or motor changes. All other systems are reviewed and are negative unless mentioned in the HPI. PAST MEDICAL HISTORY: CT x2, stent placement x2, has had a TIA, lupus, fibromyalgia, diabetes type 2, has a history of thyroid cancer, which was removed, and she is on replacement therapy, and also has a LINQ recorder. PAST SURGICAL HISTORY: Back surgery, left ankle laminectomy, hernia repair, hysterectomy, thyroidectomy. PSYCHIATRIC HISTORY: Includes depression. SOCIAL HISTORY: Smokes cigarettes half a pack a day. Denies any alcohol or drug use. ALLERGIES: 1. ABILIFY. 2. KEFLEX. 3. NAPROXEN. 4. ZYPREXA. 5. REPORTS THAT SHE IS VERY SENSITIVE TO ALL NSAIDS. HOME MEDICATIONS: 1. Coreg 3.125 b.i.d. p.o. 2. Gabapentin 800 mg p.o. q.i.d. 3. Vitamin D3 2000 units once a day. 4. Synthroid 200 mcg once a day. 5. Aspirin 81 mg p.o. once a day. 6. Atorvastatin 40 mg at bedtime. 7. Jardiance 10 mg once a day in the morning. 8. Magnesium 250 mg every other day. 9. Metformin 1000 mg p.o. b.i.d. 10. Prilosec 40 mg once a day. 11. Eliquis 5 mg p.o. b.i.d. 12. Calcium 600 mg once a day. 13. Carisoprodol 350 mg p.o. q.8 hours as needed. PHYSICAL EXAMINATION: VITAL SIGNS: Blood pressure is 122/80, pulse is 66, respirations are 19, pO2 saturations 100% on 2 L of oxygen. GENERAL: The patient appears nontoxic. She is alert and oriented to person, place, and time. HEENT: Head is atraumatic and normocephalic. Eyes; eyelids are normal to inspection. Pupils are equally round and reactive to light. ENT; mouth exam is normal. Mucous membranes are moist. NECK: Normal range of motion. Trachea is midline. RESPIRATORY: Wheezing diffuse and scattered bilaterally. No findings of any respiratory distress. CARDIOVASCULAR: Regular heart rate and rhythm. Heart sounds are normal. ABDOMEN: Tender diffusely. Has a large umbilical hernia which is tender, but reducible, is not erythematous. BACK: Normal inspection. Normal range of motion. EXTREMITIES: Upper extremities; inspection is normal, range of motion is normal. Radial pulses are equal bilaterally. Lower extremities; normal range of motion. Normal inspection. Sensation is intact. Pedal pulses are equal. No edema is noted. NEUROLOGIC: The patient is oriented to person, place, and time. Speech is normal. SKIN: Warm and dry. Normal in color. PSYCH: Normal affect. IMAGING DATA: Chest x-ray shows no acute process. PERTINENT LABORATORY DATA: Sodium 136, potassium is 3.7, chloride is 99, carbon dioxide is 28, gap is 13, BUN is 17, creatinine is 0.89, estimated GFR is 65, glucose is 180, calcium is 9.4, bilirubin 0.3, AST is 14, ALT is 15, alkaline phosphatase is 90. Troponin x2 is undetectable. Albumin is 3.9, globulin is 2.3, lipase is 8. White blood cell count is 7.1, hemoglobin is 13.6, hematocrit is 41.1, and platelet count is 187. PLAN AND ASSESSMENT: 1. Chest pain. We will have serial troponins. We will order a stress test. The patient had an echocardiogram in May of 2018 which showed ejection fraction is visually estimated at 60% to 65%, grade 1/3 diastolic dysfunction, mild tricuspid regurgitation, mild mitral regurgitation, mildly dilated left atrium, mildly enlarged right atrium. 2. History of stent placement and anticoagulation. We will continue Eliquis, aspirin, and Coreg. 3. Dyslipidemia. We will check lipids in the morning. We will continue the Lipitor. 4. Fibromyalgia. We will continue home medications. 5. Hypothyroidism. We will check thyroid levels in the morning. Continue her home medication, adjust as needed. 6. Abdominal pain around hernia. This appears stable. Per the CT scan, there is a hernia containing fat. It does not appear incarcerated. It is not erythematous. It is reducible. We will have the patient follow up as an outpatient if it continues to be stable. 7. Gastrointestinal prophylaxis has been started. The patient is already anticoagulated. 8. Hospital course will be dependent on clinical findings. Job ID: [id number]
[2018-12-08] MEDS: Acetaminophen 325 MG TAB PO PRN ×2 (04:49→08:57)
[2018-12-08 05:18] LABS: #Lymphocytes 1.1 thou/uL (1.20-3.40); #Monocytes 0.2 thou/uL (0.11-0.59); #Neutrophils 4.4 thou/uL (1.40-6.50); %Basophils 0.6 % (0.0-1.0); %Eosinophils 0.3 % (0.0-10.0); %Lymphocytes 18.5 % (21.0-51.0); %Monocytes 2.9 % (0.0-10.0); %Neutrophils 77.8 % (42.0-75.0); Hemoglobin 13.5 g/dL (12.0-16.0); Mean Corpuscular HGB CONC 33.1 g/dL (32.0-36.0); Mean Corpuscular Hemoglobin 30.8 pg (27.0-31.0); Mean Corpuscular Volume 92.8 fL (78.0-98.0); Mean Platelet Volume 7.7 fL (7.4-10.4); Platelet Count 197 thou/uL (130-400); RBC Distribution Width 12.3 % (11.5-14.5); White Blood Cell (WBC) Count 5.7 thou/uL (4.8-10.8)
[2018-12-08 05:34] LABS: Anion Gap 12 mmol/L (10-20); BUN (Urea Nitrogen) 15 mg/dL (9.8-20.1); Calc. Creatinine Clearance 116 mL/min (70-130); Carbon Dioxide 27 mmol/L (22-29); Chloride 101 mmol/L (98-107); Estimated GFR-MDRD 74; Potassium 4.2 mmol/L (3.5-5.1); Sodium 136 mmol/L (136-145)
[2018-12-08 05:35] LABS: Cardiac Risk 2.9 (Less than 4.5); Cholesterol 163 mg/dl (< 200 Desired); Glucose 196 mg/dL (70-105); HDL Cholesterol 56 mg/dL (>60 Neg Risk); LDL Cholesterol, Calculated 93 mg/dL; Triglycerides 71 mg/dL (Less than 150)
[2018-12-08 05:56] LABS: Free T4 (Free Thyroxine) 1.5 ng/dL (0.70-1.48)
[2018-12-08] MEDS ORDERED: Levothyroxine Sodium 100 MCG TAB PO SCH (06:00)
[2018-12-08] MEDS ORDERED: Levothyroxine Sodium 200 MCG TAB PO SCH (06:00)
[2018-12-08] MEDS ORDERED: metFORMIN 500 MG TAB PO SCH (08:00)
[2018-12-08] MEDS: Famotidine 20 MG TAB PO SCH (08:55)
[2018-12-08] MEDS ORDERED: Gabapentin 400 MG CAP PO SCH (09:00)
[2018-12-08] MEDS ORDERED: Apixaban 5 MG TAB PO SCH (09:00)
[2018-12-08] MEDS ORDERED: Carvedilol 3.125 MG TAB PO SCH (09:00)
[2018-12-08] MEDS ORDERED: Aspirin Chewable 81 MG TAB PO SCH (09:00)
[2018-12-08] MEDS ORDERED: Enoxaparin Sodium 40 MG/0.4 ML SYRINGE SC SCH (09:00)
[2018-12-08] MEDS ORDERED: ADENOSINE 60 MG/20 ML VIAL ONE (09:48)
--- NOTE | 2018-12-08 12:07 | NM ---
CARDIAC SPECT: HISTORY: Chest pain PROTOCOL: Single isotope, stress only. RADIOPHARMACEUTICAL: 29 mCi technetium 99m sestamibi injected intravenously STRESS: Pharmacologic stress with adenosine monitored and interpreted by Dr. Rush. FINDINGS: Homogeneous tracer distribution is seen in the myocardial segments on the poststress images. Gated SPECT LVEF: 68% Wall motion exam: Normal IMPRESSION: Normal poststress myocardial perfusion scan.
[2018-12-08 12:24] VITALS: BP 137/63; TEMP 97.6
== END 2018-12-08 15:39 | disposition home or self-care (01) ==
LOC: ERS 16:53 → 2SW 18:11
PROVIDERS: ADMIT Internal Medicine; ATTEND Internal Medicine
DX: R07.2 Precordial pain (principal); G47.30 Sleep apnea, unspecified; M79.7 Fibromyalgia; I25.2 Old myocardial infarction; E11.9 Type 2 diabetes mellitus without complications; F17.210 Nicotine dependence, cigarettes, uncomplicated; F32.9 Major depressive disorder, single episode, unspecified; E89.0 Postprocedural hypothyroidism; K42.9 Umbilical hernia without obstruction or gangrene; K44.9 Diaphragmatic hernia without obstruction or gangrene; Z86.73 Personal history of transient ischemic attack (TIA), and cerebral infarction without residual deficits; Z88.1 Allergy status to other antibiotic agents; Z88.6 Allergy status to analgesic agent; Z88.8 Allergy status to other drugs, medicaments and biological substances; Z79.01 Long term (current) use of anticoagulants; Z79.82 Long term (current) use of aspirin; Z79.84 Long term (current) use of oral hypoglycemic drugs; Z79.899 Other long term (current) drug therapy; Z95.5 Presence of coronary angioplasty implant and graft; Z95.818 Presence of other cardiac implants and grafts
CPT/HCPCS: 71045; 74177; 78452; 80048; 80053; 80061; 82962 ×2; 83690; 84439; 84481; 84484 ×2; 85025 ×2; 93005; 93017; 94640; 94760; 96361 ×2; 96365; 96375; 99285; A9500; G0378; 36415; 36416; J0153; J1200; J2765; J7512; J7620; Q9966